=== PATIENT | female | born 1990 | race American Indian/Alaskan Native ===

== ENCOUNTER 2018-06-29 02:31 | Inpatient (IN) | payer SELFPAY ==
[2018-06-29] MEDS ORDERED: SUBLIMAZE IV PRN (03:26)
[2018-06-29] MEDS ORDERED: BRETHINE IVP PRN (03:26)
[2018-06-29] MEDS ORDERED: AMPICILLIN/NS 2 GM/100 ML 2 GM/100 ML BAG IV ONE (03:26)
[2018-06-29] MEDS ORDERED: XYLOCAINE 2% INFILTRATI ONE ×2 (03:26→05:00)
[2018-06-29] MEDS ORDERED: BRETHINE SUB-Q PRN (03:26)
[2018-06-29] MEDS ORDERED: MINERAL OIL PO PRN (03:26)
[2018-06-29] MEDS ORDERED: PITOCin/NS 20 UNIT/1000ML DRIP 20 UNITS/1,000 ML BAG IV SCH ×2 (04:00→05:00)
[2018-06-29] MEDS ORDERED: LACTATED RINGERS 1,000 ML IV SCH ×2 (04:00→05:00)
[2018-06-29 04:25] LABS: Hematocrit 39.5 % (30.3-42.9); Hemoglobin 13.5 gm/dl (10.1-14.3); Mean Corpuscular HGB Conc 34 % (30-34); Mean Corpuscular Volume 91 fl (79-97); Platelet Count 139 K/mm3 (140-440); Red Blood Count 4.35 M/mm3 (3.65-5.03)
[2018-06-29] MEDS ORDERED: PITOCin/NS 30 UNIT/500ML 30 UNITS/500 ML BAG IV SCH (05:00)
[2018-06-29 05:31] LABS: Hematocrit 37.9 % (30.3-42.9)
[2018-06-29 05:40] LABS: Hepatitis C Virus Antibody Non-Reactive (NonReactive)
--- NOTE | 2018-06-29 07:11 | History and Physical Report ---
History of Present Illness Date of examination: 06/29/18 Date of admission: 06/29/18 03:35 Chief complaint: C/O contractions History of present illness: 28 yo , now 39.5 weeks presents in active labor. She is a patient of [facility], there are no records available. She states she has a negative Medical, and surgical history and that all of her labs were normal. She is RH negative and had Rhogam. She does not recall her GBS status. Prior vaginal baby was 3.8 Kilos Past History Past Medical History: no pertinent history Past Surgical History: no surgical history Family/Genetic History: none Social history: no significant social history - Obstetrical History Expected Date of Delivery: 07/01/18 Actual Gestation: 39 Week(s) 5 Day(s) : 2 Para: 1 Hx # Term Pregnancies: 0 Number of Living Children: 1 Medications and Allergies Allergies Allergy/AdvReac Type Severity Reaction Status Date / Time No Known Allergies Allergy Unverified 06/29/18 02:51 Active Meds: Active Medications Ephedrine Sulfate (Ephedrine Sulfate) 10 mg IV Q2M PRN PRN Reason: Hypotension Fentanyl (Sublimaze) 100 mcg IV Q2H PRN PRN Reason: Labor Pain Ampicillin Sodium (Ampicillin/Ns 1 Gm/50 Ml) 1 gm in 50 mls @ 100 mls/hr IV Q4HR JEFFERSON; Protocol Lactated Ringer's (Lactated Ringers) 1,000 mls @ 125 mls/hr IV DIRECT JEFFERSON Last Admin: 06/29/18 05:21 Dose: 125 mls/hr Documented by: Oxytocin/Sodium Chloride (Pitocin/Ns 20 Unit/1000ml Drip) 20 units in 1,000 mls @ 125 mls/hr IV DIRECT JEFFERSON Lactated Ringer's (Lactated Ringers) 1,000 mls @ 125 mls/hr IV DIRECT JEFFERSON Oxytocin/Sodium Chloride (Pitocin/Ns 20 Unit/1000ml Drip) 20 units in 1,000 mls @ 125 mls/hr IV DIRECT JEFFERSON Oxytocin/Sodium Chloride (Pitocin/Ns 30 Unit/500ml) 30 units in 500 mls @ 2 mls/hr IV TITR JEFFERSON; Protocol Mineral Oil (Mineral Oil) 30 ml PO QHS PRN PRN Reason: Constipation Terbutaline Sulfate (Brethine) 0.25 mg SUB-Q ONCE PRN PRN Reason: Hyperstimulation/Hypertonicity Terbutaline Sulfate (Brethine) 0.25 mg IVP ONCE PRN PRN Reason: Hyperstimulation/Hypertonicity Review of Systems All systems: negative - Vital Signs Vital signs: Vital Signs Pulse BP 77 120/64 06/29/18 02:57 06/29/18 02:57 Temp Pulse Resp BP Pulse Ox 77 120/64 06/29/18 02:57 06/29/18 02:57 - Physical Exam Breasts: Positive: deferred Lungs: Positive: Clear to auscultation Abdomen: Positive: soft Genitourinary (Female): Positive: normal external genitalia Vulva: both: normal Vagina: Positive: normal moisture Uterus: Positive: enlarged - Obstetrical FHR: category 2 Uterine Contraction Monitor Mode: External Cervical Dilatation: 8 (Arom , light meconium) Cervical Effacement Percentage: 80 station: -1 Uterine Contraction Duration: every 3 min Uterine Contraction Pattern: Regular Results Result Diagrams: 06/29/18 05:20 Abnormal lab results 06/29/18 Range/Units 04:00 Plt Count 139 L (140-440) K/mm3 All other labs normal. Assessment and Plan A:IUP @ 39.5 weeks in active labor Light meconium P: Expect
[2018-06-29] MEDS ORDERED: AMPICILLIN/NS 1 GM/50 ML 1 GM/50 ML BAG IV SCH (07:26)
--- NOTE | 2018-06-29 09:26 | Procedure Note ---
OB Delivery Note - Delivery Date of Delivery: 06/29/18 Surgeon: EMBER LINDSEY Estimated blood loss: 200cc - Vaginal Delivery presentation: vertex Delivery position: OA Intrapartum events: meconium Delivery augmentation: rupture of membranes, pitocin Delivery monitor: external FHT, external uterine Route of delivery: Delivery placenta: spontaneous Delivery cord: 3 umbilical vessels Episiotomy: none Delivery laceration: other (small laceration in introitus, not sutured) Anesthesia: none Delivery comments: of a viable female 7# 15 @ 0854 on 11/26/18 over intact perineum. Placenta delivered 3VC, with trailing membranes. Uterus swept and clots removed. Apgars 8/9. EBL 200cc. Mother and baby doing well. - Infant A at 1 minute: 8 at 5 minutes: 9 Infant Gender: Female (7# 15 oz)
[2018-06-29] MEDS ORDERED: PHENERGAN PO PRN (09:29)
[2018-06-29] MEDS ORDERED: TUCKS PAD TP PRN (09:29)
[2018-06-29] MEDS ORDERED: NORCO 5/325 PO PRN (09:29)
[2018-06-29] MEDS ORDERED: LANSINOH TP PRN (09:29)
[2018-06-29] MEDS ORDERED: TYLENOL PO PRN (09:29)
[2018-06-29] MEDS ORDERED: BENADRYL PO PRN (09:29)
[2018-06-29] MEDS ORDERED: SODIUM CHLORIDE FLUSH SYRINGE 10 ML IV NR (10:00)
[2018-06-29] MEDS: IBUPROFEN PO SCH ×3 (11:10→22:00)
[2018-06-29 18:24] LABS: Amphetamine Screen,Urine PRESUMPTIVE NEGATIVE; Benzodiazepines Screen,Urine PRESUMPTIVE NEGATIVE; Cannabinoid Screen,Urine PRESUMPTIVE NEGATIVE; Cocaine Screen,Urine PRESUMPTIVE NEGATIVE; Methadone Screen,Urine PRESUMPTIVE NEGATIVE; Opiate Screen,Urine PRESUMPTIVE NEGATIVE
[2018-06-29 21:24] LABS: Hematocrit 36.1 % (30.3-42.9); Hemoglobin 12.3 gm/dl (10.1-14.3)
[2018-06-30] MEDS: IBUPROFEN PO SCH ×2 (08:23→17:58)
--- NOTE | 2018-06-30 08:59 | Progress Note ---
Assessment and Plan - Patient Problems (1) (normal spontaneous vaginal delivery) Onset Date: 06/30/18 Current Visit: Yes Status: Resolved Plan to address problem: A: S/P - PPD #1 Doing well P: May go home tomorrow. Subjective - Subjective Date of service: 06/30/18 Principal diagnosis: s/p - PPD #1 Interval history: Pt is feeling well without complaints. Bleeding improved. Patient reports: appetite normal, voiding normally, pain well controlled, flatus, ambulating normally, no dizzy ambulation, no nauseated : doing well, nursing well Objective - Vital Signs Latest vital signs: Vital Signs Temp Pulse Resp BP BP Pulse Ox 06/30/18 08:16 98.3 F 96 H 18 108/64 94 06/30/18 00:22 97.8 F 18 106/46 06/29/18 19:57 98.0 F 92 H 18 110/54 98 06/29/18 17:40 88 06/29/18 16:37 98.2 F 88 18 99/54 06/29/18 11:40 97.6 F 18 101/55 06/29/18 10:53 97.3 F L 76 18 109/57 7 L 06/29/18 10:19 83 113/64 06/29/18 10:04 74 110/57 06/29/18 09:50 85 110/58 Intake and Output 06/29/18 06/30/18 06/30/18 22:59 06:59 14:59 Intake Total 540 Output Total 200 Balance 340 Intake: Oral 540 Output: Urine 200 Void 200 Other: Total, Intake Amount 240 Total, Output Amount 200 # Voids Void 1 1 - Exam Breasts: Present: deferred Abdomen: Present: normal appearance, soft Uterus: Present: normal, firm, fundal height below umbilicus Extremities: Present: normal - Labs Labs: Laboratory Tests 06/29/18 06/29/18 06/29/18 04:00 04:00 04:00 WBC 8.1 RBC 4.35 Hgb 13.5 Hct 39.5 MCV 91 MCH 31 MCHC 34 RDW 14.0 Plt Count 139 L Urine Opiates Screen Urine Methadone Screen Ur Barbiturates Screen Ur Phencyclidine Scrn Ur Amphetamines Screen U Benzodiazepines Scrn Urine Cocaine Screen U Marijuana (THC) Screen Drugs of Abuse Note RPR Nonreactive Hep Bs Antigen Hepatitis C Antibody HIV 1&2 Antibody Rapid HIV P24 Antigen Rubella IgG Antibody Blood Type A NEGATIVE Antibody Screen Positive Antibody Identification Anti-D (Passively Aquired) 06/29/18 06/29/18 06/29/18 04:00 04:00 04:00 WBC RBC Hgb Hct MCV MCH MCHC RDW Plt Count Urine Opiates Screen Urine Methadone Screen Ur Barbiturates Screen Ur Phencyclidine Scrn Ur Amphetamines Screen U Benzodiazepines Scrn Urine Cocaine Screen U Marijuana (THC) Screen Drugs of Abuse Note RPR Hep Bs Antigen Non-reactive Hepatitis C Antibody Non-reactive HIV 1&2 Antibody Rapid Non react HIV P24 Antigen Non react Rubella IgG Antibody Immune Blood Type Antibody Screen Antibody Identification 06/29/18 06/29/18 06/29/18 05:20 18:00 21:04 WBC RBC Hgb 13.0 12.3 Hct 37.9 36.1 MCV MCH MCHC RDW Plt Count Urine Opiates Screen Presumptive negative Urine Methadone Screen Presumptive negative Ur Barbiturates Screen Presumptive negative Ur Phencyclidine Scrn Presumptive negative Ur Amphetamines Screen Presumptive negative U Benzodiazepines Scrn Presumptive negative Urine Cocaine Screen Presumptive negative U Marijuana (THC) Screen Presumptive negative Drugs of Abuse Note Disclamer RPR Hep Bs Antigen Hepatitis C Antibody HIV 1&2 Antibody Rapid HIV P24 Antigen Rubella IgG Antibody Blood Type Antibody Screen Antibody Identification
--- NOTE | 2018-06-30 10:59 | Discharge Summary ---
Providers - Providers Date of Admission: 06/29/18 03:35 Date of discharge: 07/01/18 Attending physician: RYAN CAZARES Primary care physician: RYAN CAZARES Hospitalization Reason for admission: active labor, IUP at term Delivery: Episiotomy: none Laceration: vaginal side wall Other procedures: none complications: none Discharge diagnosis: IUP at term delivered baby: female Hospital course: Unremarkable. Condition at discharge: Good Disposition: DC-01 TO HOME OR SELFCARE - Discharge Diagnoses (1) (normal spontaneous vaginal delivery) Status: Resolved Plan - Discharge Medications Prescriptions: Ibuprofen [Motrin 600 MG tab] 600 mg PO Q6H #30 tablet - Provider Discharge Summary Activity: routine, no sex for 6 weeks, no heavy lifting 4 weeks, no strenuous exercise Diet: routine Instructions: routine Additional instructions: [] Smoking cessation referral if applicable(refer to patient education folder for contact #) [] Refer to [facility]'s [facility] Booklet Call your doctor immediately for: * Fever > 100.5 * Heavy vaginal bleeding ( >1 pad per hour) * Severe persistent headache * Shortness of breath * Reddened, hot, painful area to leg or breast * Drainage or odor from incision. * Keep incision clean and dry at all times and follow doctor's instructions regarding bathing/showering - Follow up plan Follow up: RYAN CAZARES MD [Primary Care Provider] - 6 Weeks
[2018-07-01] MEDS: IBUPROFEN PO SCH (06:00)
[2018-07-01 08:19] VITALS: BP 108/62
== END 2018-07-01 13:00 | disposition home or self-care (01) | DRG 806 ==
LOC: TRG 02:31 → EDBD 02:31 → TRG 02:32 → LD 03:35 → OB 10:33
PROVIDERS: ADMIT Obstetrics & Gynecology; ATTEND Obstetrics & Gynecology
PROC: 10E0XZZ Delivery of Products of Conception, External Approach (ICD-10-PCS; principal; 2018-06-29)
PROC: 0KQM0ZZ Repair Perineum Muscle, Open Approach (ICD-10-PCS; 2018-06-29)
DX: O77.0 Labor and delivery complicated by meconium in amniotic fluid (principal); O71.4 Obstetric high vaginal laceration alone; Z37.0 Single live birth; Z3A.39 39 weeks gestation of pregnancy
CPT/HCPCS: 36415; 80307; 85014; 85018; 85027; 86592; 86706; 86762; 86803; 86850; 86870; 86900; 86901; 87806; G0378; A6250; J0290; J2590; J3010; J7120